=== PATIENT | male | born 1955 | race African-American/Black ===

== ENCOUNTER 2018-11-23 08:53 | Emergency (ER) | payer BC ==
[2018-11-23 09:18] VITALS: BP 141/91; PULSE 86; TEMP 98.4; BMI 25.8
[2018-11-23] MEDS ORDERED: ACETAMINOPHEN 325 MG TABLET (FP) PO ONE (10:27)
--- NOTE | 2018-11-23 10:27 | PDOC ---
History of Present Illness - General History Source: Patient - History of Present Illness Timing/Duration: reports: other <Saint AnthonySherri - Last Filed: 11/23/18 12:24> <Twyla Alonzo - Last Filed: 11/23/18 14:33> - General Chief Complaint: Headache Stated Complaint: HEADACHE Time Seen by Provider: 11/23/18 10:05 Past History - Past Medical History COPD: No - Suicide/Smoking/Psychosocial Hx Smoking History: Current every day smoker Number of Cigarettes Smoked Daily: 15 Information on smoking cessation initiated: Yes Hx Alcohol Use: No Drug/Substance Use Hx: No <Sherri Bunch - Last Filed: 11/23/18 12:24> <Twyla Alonzo - Last Filed: 11/23/18 14:33> - Past Medical History Allergies/Adverse Reactions: Allergies Allergy/AdvReac Type Severity Reaction Status Date / Time No Known Allergies Allergy Verified 11/23/18 09:14 Home Medications: Ambulatory Orders Amlodipine Besylate/Benazepril [Lotrel 10-20 mg Capsule] 1 cap PO DAILY Hydrochlorothiazide 12.5 mg PO DAILY 11/23/18 Review of Systems - Review of Systems Neurological: Yes: Headache. No: Weakness, Dizziness <Sherri Bunch - Last Filed: 11/23/18 12:24> *Physical Exam - Vital Signs Last Vital Signs Temp Pulse Resp BP Pulse Ox 98.4 F 86 18 141/91 98 11/23/18 09:05 11/23/18 09:05 11/23/18 09:05 11/23/18 09:05 11/23/18 10:15 - Physical Exam General Appearance: Yes: Appropriately Dressed. No: Apparent Distress HEENT: positive: EOMI, Normal ENT Inspection, Normal Voice, TMs Normal, Pharynx Normal, Other (no ttp over sinuses, VA 20/25 OD, 20/40 OD, 20/25 OU). negative : Scleral Icterus (R), Scleral Icterus (L) Neck: positive: Supple Respiratory/Chest: negative: Respiratory Distress Neurologic: positive: inventory control manager II-XII NML intact, Fully Oriented, Alert, Normal Mood/ Affect, Motor Strength 5/5 <Sherri Bunch - Last Filed: 11/23/18 12:24> - Vital Signs Last Vital Signs Temp Pulse Resp BP Pulse Ox 98.4 F 86 18 141/91 98 11/23/18 09:05 11/23/18 09:05 11/23/18 09:05 11/23/18 09:05 11/23/18 10:15 <Twyla Alonzo - Last Filed: 11/23/18 14:33> Moderate Sedation - Procedure Monitoring Vital Signs: Procedure Monitoring Vital Signs Temperature 98.4 F 11/23/18 09:05 Pulse Rate 86 11/23/18 09:05 Respiratory Rate 18 11/23/18 09:05 Blood Pressure 141/91 11/23/18 09:05 O2 Sat by Pulse Oximetry (%) 98 11/23/18 10:15 <Sherri Bunch - Last Filed: 11/23/18 12:24> - Procedure Monitoring Vital Signs: Procedure Monitoring Vital Signs Temperature 98.4 F 11/23/18 09:05 Pulse Rate 86 11/23/18 09:05 Respiratory Rate 18 11/23/18 09:05 Blood Pressure 141/91 11/23/18 09:05 O2 Sat by Pulse Oximetry (%) 98 11/23/18 10:15 <Twyla Alonzo - Last Filed: 11/23/18 14:33> ED Treatment Course - Medications Given in the ED: ED Medications Discontinued Medications Generic Name Dose Route Start Last Admin Trade Name Orvilleq PRN Reason Stop Dose Admin Acetaminophen 650 mg 11/23/18 10:27 11/23/18 10:36 Tylenol - PO 11/23/18 10:28 650 mg ONCE ONE Administration Prednisone 60 mg 11/23/18 12:08 11/23/18 12:13 Deltasone - PO 11/23/18 12:09 60 mg ONCE ONE Administration <Twyla Alonzo - Last Filed: 11/23/18 14:33> Medical Decision Making - Medical Decision Making 11/23/18 10:22 63 yo M, h/o HTN, here w/ headache. Pt reports headache to R scientologist that radiates to eyes and "up my nose" x 3 days, constant, unable to describe, 8/10, better w/ motrin and worse when lying on his R side. Patient states over the past several months, has noticed worsening vision has become blurry on both sides despite wearing his glasses and suspects headache might be secondary to him straining to see. States he is planning on make an appointment with his supervisor shop after ED visit. Denies dizziness, nausea or vomiting. No prior LIU. No recent trauma. No URI sxs, f/c. Not on blood thinners. See exam New onset LIU Stable w/ unremarkable exam -CTH -ESR -anticipate dc w/ optho 2/2 recent visual change/straining to see despite wearing glasses 11/23/18 11:33 CT read as signs consistent with chronic sinusitis affecting R sphenoid/ethmoid sinuses. ESR 51. Pt given a dose of 60 mg prednisone here. I contacted pt's eye clinic, [facility], at [phone], and was told that pt can walk into clinic today 11/23/18 12:27 <Sherri Bunch - Last Filed: 11/23/18 12:24> *DC/Admit/Observation/Transfer <Sherri Bunch - Last Filed: 11/23/18 12:24> - Attestations Physician Attestion: I reviewed the case with the mid-level practitioner and agree with the mid- level practitioner's assessment, diagnosis and disposition. <Twyla Alonzo - Last Filed: 11/23/18 14:33> Diagnosis at time of Disposition: Headache Qualifiers: Headache type: unspecified Headache chronicity pattern: acute headache Intractability: not intractable Qualified Code(s): R51 - Headache - Discharge Dispostion Disposition: HOME Condition at time of disposition: Improved - Referrals Referrals: Bassam Padilla MD [Primary Care Provider] - - Patient Instructions Printed Discharge Instructions: DI for Headache Additional Instructions: You were seen in our ED for right temporal headache for 3 days and also complaining of possible worsening vision bilaterally recently. With your glasses on, your visual acuity to right eye was 20/25, to left eye was 20/40 and both eyes 20/25. Your CAT scan of your head showed no acute pathology, but does show some chronic sinus condition to your right sphenoid/ethmoid sinuses. Your ESR was 51, which is elevated. Given concern for possible temporal arteritis, you were given a dose of prednisone here, 60 mg po You need to follow-up with the supervisor shop [facility] for further evaluation and possible biopsy of your temporal artery. We called your eye clinic, [facility], and was told that you can walk in today - Post Discharge Activity
[2018-11-23] MEDS ORDERED: ACETAMINOPHEN 325 MG TABLET (FP) ONE (10:32)
[2018-11-23] MEDS ORDERED: predniSONE 20 MG TABLET (UD) PO ONE (12:08)
[2018-11-23] MEDS ORDERED: predniSONE 20 MG TABLET (UD) ONE (12:12)
== END 2018-11-23 12:31 | disposition home or self-care (01) ==
LOC: JER 08:53
DX: R51 Headache (principal); I10 Essential (primary) hypertension; F17.210 Nicotine dependence, cigarettes, uncomplicated
CPT/HCPCS: 36415; 70450-TC; 85651; 99283-25

== ENCOUNTER 2019-07-28 09:12 | Inpatient (IN) | payer BC ==
--- NOTE | 2019-07-27 23:07 | HP ---
Admitting History and Physical - Admission Chief Complaint: right hip osteoarthritis x years History of Present Illness: 64 year old male presents in regard to their right hip. Long-standing history of right hip osteoarthritis. Patient complains of pain, limited range of motion , difficulty ambulating, and difficulty with activities of daily living. Patient has failed conservative treatment options including PO medications, activity modification, injections, and exercise programs. At this point, patient like to proceed with surgical intervention, right total hip arthroplasty MAKOplasty. History Source: Patient - Past Medical History Cardiovascular: Yes: HTN Musculoskeletal: Yes: Osteoarthritis - Past Surgical History Additional Past Surgical History: See written history & physical. - Smoking History Smoking history: Current every day smoker Have you smoked in the past 12 months: Yes Aproximately how many cigarettes per day: 15 - Alcohol/Substance Use Hx Alcohol Use: Yes (none since 1999) Home Medications - Allergies Allergies/Adverse Reactions: Allergies Allergy/AdvReac Type Severity Reaction Status Date / Time No Known Allergies Allergy Verified 11/23/18 09:14 - Home Medications Home Medications: Ambulatory Orders Amlodipine Besylate/Benazepril [Lotrel 10-20 mg Capsule] 1 cap PO DAILY Hydrochlorothiazide 12.5 mg PO DAILY 11/23/18 Review of Systems - Review of Systems Musculoskeletal: reports: Decreased ROM (right hip), Joint Pain (right hip) Physical Examination Constitutional: Yes: Well Nourished, No Distress Eyes: Yes: Conjunctiva Clear HENT: Yes: Atraumatic Neck: Yes: Supple Cardiovascular: Yes: Regular Rate and Rhythm Respiratory: Yes: Regular Gastrointestinal: Yes: Soft ...Rectal Exam: Yes: Deferred Musculoskeletal: Yes: Joint Stiffness (right hip) Assessment/Plan 64 year old male presents in regard to their right hip. Long-standing history of right hip osteoarthritis. Patient complains of pain, limited range of motion , difficulty ambulating, and difficulty with activities of daily living. Patient has failed conservative treatment options including PO medications, activity modification, injections, and exercise programs. At this point, patient like to proceed with surgical intervention, right total hip arthroplasty MAKOplasty. Pros, cons, risks, benefits, and alternatives of a right total hip arthroplasty MAKOplasty were discussed with the patient at length. Patient confirms their understanding and consents to proceed with a right total hip arthroplasty MAKOplasty.
[~2019-07-28 09:12] MED LIST: BUPIVICAINE 0.25%/MORPH PF/KETOROLAC - 51ML DISP.SYRINGE IA ONE; CEFAZOLIN 2 GM in DEXTROSE 5%-WATER - 50 ML IVPB ONE; CELECOXIB 200 MG CAPSULE PO ONE; PANTOPRAZOLE 40 MG TABLET (FP) PO ONE; TRANEXAMIC ACID 1000 MG/10 ML VIAL IVPUSH ONE; oxyCODONE HCL 10 MG SUSTAINED ACTING TABLET PO ONE
[2019-07-28 09:45] VITALS: BMI 25.0
[2019-07-28] MEDS ORDERED: oxyCODONE HCL 10 MG SUSTAINED ACTING TABLET ONE (10:13)
[2019-07-28] MEDS ORDERED: CELECOXIB 200 MG CAPSULE ONE (10:13)
[2019-07-28] MEDS ORDERED: PANTOPRAZOLE 40 MG TABLET (FP) ONE (10:15)
[2019-07-28] MEDS ORDERED: ceFAZolin SODIUM 1 GM VIAL ONE ×2 (11:24→11:37)
[2019-07-28] MEDS ORDERED: VANCOMYCIN 1,000 MG VIAL (RESTRICTED TO ID ONLY) ONE (11:24)
[2019-07-28] MEDS ORDERED: TRANEXAMIC ACID 1000 MG/10 ML VIAL ONE ×3 (11:24→14:50)
[2019-07-28] MEDS ORDERED: ROPIVACAINE HCL 0.5% 30ML VIAL ONE (11:37)
[2019-07-28] MEDS ORDERED: EPINEPHrine/PF 1 MG/1 ML (1:1,000) AMPULE ONE (11:37)
[2019-07-28] MEDS ORDERED: MIDAZOLAM HCL 2 MG/2 ML SINGLE DOSE VIAL ONE ×2 (11:37→12:18)
[2019-07-28] MEDS ORDERED: PROPOFOL 20 ML ONE ×2 (11:38)
[2019-07-28] MEDS ORDERED: BUPIVICAINE 0.25%/MORPH PF/KETOROLAC - 51ML DISP.SYRINGE IA ONE (12:43)
--- NOTE | 2019-07-28 15:21 | OP ---
Operative Note - Note: Operative Date: 07/28/19 Pre-Operative Diagnosis: right hip OA Operation: right JAK DOMINICK Surgeon: Satnam Holland Orchard Worker: Viviana Camacho Anesthesia: Spinal Estimated Blood Loss (mls): 200
[2019-07-28] MEDS ORDERED: ACETAMINOPHEN 1000 MG/100 ML VIAL (NON FORMULARY) IVPB ONE (15:22)
[2019-07-28] MEDS ORDERED: MAG HYDROX/AL HYDROX/SIMETH 30 ML UNIT-DOSE CUP PO PRN (15:24)
[2019-07-28] MEDS ORDERED: ONDANSETRON 4 MG/2 ML VIAL IVPUSH PRN (15:24)
[2019-07-28] MEDS ORDERED: MAGNESIUM HYDROX 2400MG/30ML ORAL SUSPENSION 30 ML CUP PO PRN (15:24)
[2019-07-28] MEDS ORDERED: KETOROLAC TROMETHAMINE 30 MG/1 ML VIAL ONE (15:26)
[2019-07-28] MEDS ORDERED: LACTATED RINGERS SOLUTION 1,000 ML IV SCH (15:30)
[2019-07-28] MEDS ORDERED: KETOROLAC TROMETHAMINE 30 MG/1 ML VIAL IVPUSH SCH (15:30)
[2019-07-28] MEDS ORDERED: oxyCODONE HCL 5 MG TABLET PO PRN (15:47)
[2019-07-28] MEDS: traMADol HCL 50 MG TABLET PO SCH (16:13)
--- NOTE | 2019-07-28 16:52 | SPEC ---
DATE OF OPERATION: 07/28/2019 PREOPERATIVE DIAGNOSIS: Right hip osteoarthritis. POSTOPERATIVE DIAGNOSIS: Right hip osteoarthritis. PROCEDURE: Right total hip replacement with MAKOplasty robotic navigation. ATTENDING: Vamsi Wiley MD COAL TRAMMER: MEENA Palmer ANESTHESIA: Spinal plus sedation. ESTIMATED BLOOD LOSS: 200 mL. COMPLICATIONS: None. DISPOSITION: The patient was transferred to the PACU in stable condition. IMPLANTS USED: Kristin Accolade II size 7 femoral component, Kristin Trident II 58-mm acetabular component with 25- and 30-mm acetabular screws, MDM bipolar head ball and liner with inner +4-mm offset ceramic head ball. INDICATIONS: This is a 64-year-old male who presented to the office complaining of severe right hip pain. He was seen and examined by Dr. Wiley and diagnosed with severe right hip osteoarthritis. The patient was initially treated conservatively but continued to have severe pain and ambulatory dysfunction. He was, therefore, indicated for a right total hip replacement. The risks, benefits, and alternatives to the procedure were explained to the patient in great detail, and he elected to proceed with the surgery. DESCRIPTION OF PROCEDURE: On the day of surgery, the patient was taken to the operating room and placed on the OR table. Spinal anesthesia was administered by the anesthesiologist. The patient was then positioned in the lateral decubitus position on the table and all bony prominences were padded. An axillary roll was placed. The operative hip was then prepped and draped in the usual sterile fashion and intravenous antibiotics were given for infection prophylaxis. A surgical time-out was then performed with the team, and the patients identity, procedure, side, availability of implants, and the administration of antibiotics were confirmed. An approximately 15-cm longitudinal incision was made through the skin centered on the greater trochanter of the hip. This dissection was carried down through the subcutaneous tissues to the deep fascia. This fascia was then incised and a Cobra was placed around the inferior femoral neck. Electrocautery was used to reflect the anterior 40% of the gluteus medius and minimus starting at the musculotendinous junction and leaving a cuff for closure. This was reflected to reveal the capsule of the hip joint. An anterior capsulectomy was performed and the femoral head and neck were visualized. Grade 4 changes were noted diffusely throughout the joint. At this point, three small stab incisions were made superior to the main incision along the iliac crest. Three self-drilling Steinmann pins were then placed and the eEvent pelvic array was attached. Reference points on the limb were then entered into the robotic device and the limb length deficiency, offset, and femoral neck resection level were then calculated by the software. The hip was then dislocated with traction and external rotation. An oscillating saw was used to make the femoral neck cut at the level previously templated, and the femoral head was removed. Attention was then turned to the acetabulum. Retractors were then placed around the acetabulum and the labrum was removed. An acetabular checkpoint pin and the eEvent software were used to register the contours of the acetabulum. The acetabulum was then reamed in a single stage to the preoperatively templated size using the eEvent robotic arm. The appropriately sized cup was then impacted and had solid fixation as well as the preset inclination and version of 40 and 20 degrees, respectively. A polyethylene liner was then placed in the cup. Attention was then turned back to the femur, which was externally rotated for improved visualization. A femoral neck elevator was used to present the femoral neck cut, a box osteotome was used to enter the femoral canal, and a canal finder was used to go down the femoral shaft. The Francisco broaches were used sequentially until the optimal scratch fit was achieved. This correlated with the preoperatively templated size. From here, several different offset head and neck configurations were tested until excellent stability and length were obtained. These measurements were quantified using the eEvent software. All trial components were then removed, the femur was copiously irrigated, and the final components were placed. Leg length and stability were checked again and found to be excellent. Irrigation was performed again. After final implants were placed, a 3-minute dilute Betadine lavage was performed. Following this, the wound was thoroughly irrigated with normal saline via pulsatile lavage, and wound closure was begun. Wound closure was started by repairing the abductor muscles with a no. 2 FiberWire stitch in a Krackow configuration passed through bone tunnels in the greater trochanter and tied over a bony bridge. This repair was then reinforced with a 0 V-Loc 180 barbed suture. Next, no. 1 Polysorb and 0 V-Loc 180 were used to close the fascia. The deep subcutaneous tissue was closed with no. 1 Polysorb sutures, and 2-0 Polysorb was used for the superficial subcutaneous tissue. The skin was closed using both 3-0 V-Loc 90 suture in a running subcuticular fashion and SwiftSet skin adhesive. The Francisco array and pins were removed from the iliac crest and the stab incision sites were irrigated and closed with 4-0 Polysorb sutures and SwiftSet skin adhesive. Once this was completed, a sterile dressing was applied. The patient was then awakened and taken to the PACU in stable condition. VAMSI WILEY M.D. TESSY/[id number]
[2019-07-28] MEDS: CEFAZOLIN 2 GM/D5W 2 GM/50 ML ML IVPB SCH (17:29)
[2019-07-28] MEDS: oxyCODONE HCL 5 MG TABLET PO PRN (17:32)
[2019-07-28] MEDS: SENNOSIDES/DOCUSATE COMBO (SENNA PLUS) TABLET (UD) PO SCH (21:46)
[2019-07-28] MEDS: ASCORBIC ACID 500 MG TABLET (FP) PO SCH (21:46)
[2019-07-28] MEDS: GABAPENTIN 300 MG CAPSULE (FP) PO SCH (21:47)
[2019-07-28] MEDS: CELECOXIB 200 MG CAPSULE PO SCH (21:48)
[2019-07-28] MEDS: KETOROLAC TROMETHAMINE 30 MG/1 ML VIAL IVPUSH SCH (21:48)
[2019-07-28] MEDS: oxyCODONE HCL 10 MG SUSTAINED ACTING TABLET PO SCH (21:49)
[2019-07-29] MEDS ORDERED: DEXAMETHASONE SOD PHOSPHATE 10 MG/1 ML VIAL IVPB ONE
[2019-07-29] MEDS: ACETAMINOPHEN 325 MG TABLET (FP) PO SCH ×5 (00:02→23:56)
[2019-07-29] MEDS: traMADol HCL 50 MG TABLET PO SCH ×5 (00:03→23:56)
[2019-07-29] MEDS: CEFAZOLIN 2 GM/D5W 2 GM/50 ML ML IVPB SCH (01:14)
[2019-07-29] MEDS: KETOROLAC TROMETHAMINE 30 MG/1 ML VIAL IVPUSH SCH ×3 (02:56→14:51)
[2019-07-29 07:21] LABS: HEMATOCRIT 39.3 % (35.4-49); HEMOGLOBIN 13.4 GM/dl (11.7-16.9); MCH 31.5 pg (25.7-33.7); MCHC 33.9 g/dl (32.0-35.9); MEAN CELL VOLUME 92.7 fl (80-96); MEAN PLT VOLUME 7.9 fl (7.5-11.1); PLATELET COUNT 356 K/MM3 (134-434); RBC 4.24 M/mm3 (4.00-5.60); RDW 12.9 % (11.9-15.9)
[2019-07-29 07:30] LABS: CALCIUM 8.6 mg/dl (8.5-10); CREATININE 1.3 mg/dl (0.55-1.3); POTASSIUM 4.1 mmol/L (3.5-5.1)
[2019-07-29] MEDS: LACTATED RINGERS SOLUTION 1,000 ML IV SCH ×2 (08:13→17:33)
[2019-07-29] MEDS: ASPIRIN 325 MG TABLET PO SCH (08:30)
[2019-07-29] MEDS ORDERED: PATIENT'S OWN MEDICATION (NON-FORMULARY) (Amlodipine Besylate/Benazepril [Lotrel 10-20 Mg PO SCH (10:00)
[2019-07-29] MEDS: CELECOXIB 200 MG CAPSULE PO SCH ×2 (10:59→21:36)
[2019-07-29] MEDS: amLODIPine BESYLATE 10 MG TABLET (FP) PO SCH (10:59)
[2019-07-29] MEDS: HYDROCHLOROTHIAZIDE 12.5 MG CAPSULE (FP) PO SCH (10:59)
[2019-07-29] MEDS: SENNOSIDES/DOCUSATE COMBO (SENNA PLUS) TABLET (UD) PO SCH ×2 (10:59→21:37)
[2019-07-29] MEDS: MULTIVITAMINS (DAILY MVI) TABLET (FP) PO SCH (10:59)
[2019-07-29] MEDS: LISINOPRIL 20 MG TABLET (FP) PO SCH (10:59)
[2019-07-29] MEDS: GABAPENTIN 300 MG CAPSULE (FP) PO SCH ×2 (10:59→21:36)
[2019-07-29] MEDS: ASCORBIC ACID 500 MG TABLET (FP) PO SCH ×2 (10:59→21:37)
[2019-07-29] MEDS: PANTOPRAZOLE 40 MG TABLET (FP) PO SCH (10:59)
[2019-07-29] MEDS: oxyCODONE HCL 10 MG SUSTAINED ACTING TABLET PO SCH ×2 (11:00→21:36)
--- NOTE | 2019-07-29 15:34 | PN ---
Progress Note (short form) - Note Progress Note: S: Pt. sitting in a chair. No c/o O: VAS 10/14 A/P: POD #1 s/p right total hip replacement 1. Continue pain meds as ordered 2. No anesthetic complications
--- NOTE | 2019-07-29 19:20 | PN ---
Progress Note (short form) - Note Progress Note: Pt seen and examined. Doing well. AVSS Selected Entries 07/29/19 18:00 Temperature 98.6 F Pulse Rate 74 Respiratory 17 Rate Blood Pressure 130/77 O2 Sat by Pulse 94 L Oximetry (%) Oxygen Delivery Room Air Method Laboratory Tests 07/29/19 07/29/19 07:07 07:07 WBC 11.0 H Hgb 13.4 Hct 39.3 Plt Count 356 Sodium 138 Potassium 4.1 Chloride 106 Carbon Dioxide 23 Anion Gap 9 BUN 24.0 H Creatinine 1.3 Est GFR (CKD-EPI)AfAm 67.30 Est GFR (CKD-EPI)NonAf 58.07 Random Glucose 135 H Calcium 8.6 Gen: NAD RLE: c/d/i, NVID A/P POD#1 s/p R JAK TAN PT/OOB - WBAT RLE D/C home in AM
--- NOTE | 2019-07-29 19:36 | DS ---
Physical Examination Vital Signs: Vital Signs Temperature 98.6 F 07/29/19 18:00 Pulse Rate 74 07/29/19 18:00 Respiratory Rate 17 07/29/19 18:00 Blood Pressure 130/77 07/29/19 18:00 O2 Sat by Pulse Oximetry (%) 94 L 07/29/19 18:00 Labs: CBC, BMP 07/29/19 07:07 07/29/19 07:07 Discharge Summary Problems reviewed: Yes Reason For Visit: RIGHT HIP OSTEOARTHRITIS Current Active Problems Osteoarthritis of right hip (Acute) Procedures: Principal: right JAK DOMINICK Hospital Course: Admitted for elective surgery. Procedure performed without complications. Pt received postoperative antibiotic prophylaxis and DVT ppx. Ambulated with physical therapy. Stable for discharge home with outpatient followup. Condition: Stable - Instructions Diet, Activity, Other Instructions: Dr Holland - Hip Replacement Instructions Keep the Aquacel dressing on until removed by Dr. Holland in 10-14 days - it is antibacterial and waterproof and you can shower with it on. Call the office for a follow-up appointment with Dr. Holland in 14 days. [phone] Take one Aspirin 325mg daily for 6 weeks to prevent blood clots in your legs. Take one Pantoprazole 40mg daily for 6 weeks to protect against heartburn and ulcers. Take Cephalexin (antibiotic) 3x/day for 10 days to help prevent skin infection. Take Celebrex 200mg twice daily for 30 days to reduce swelling and inflammation. Take a multivitamin, stool softener and extra Vitamin C supplement daily. For pain: *Mild pain (1-3/10): Take 1 Tramadol tablet every 4 hours as needed. Moderate pain (4-6/10): Take 1 Tramadol tablet and 1 Percocet tablet every 4 hours as needed. Severe pain (7-10/10): Take 1 Tramadol tablet and 2 Percocet tablets every 4 hours as needed. Activity: You can put as much weight on the operative leg as you want. For the first 6 weeks, all you need to do is walk around the house, go up/down stairs, and sit down/get up. After 6 weeks when everything is healed (and bone has grown into the implant) you will be sent for more intensive outpatient physical therapy. Always use a walker or cane for balance and to prevent falls. Expect to see swelling / bruising from the operative site all the way down to your toes. Wear the Compression stocking on the operative side during the day to minimize how much swelling there is in your foot/ankle. Don't wear the stocking at night. You don't have to wear the stocking on the other side. Disposition: VNS/HOME HEALTH CARE - Home Medications Comprehensive Discharge Medication List: Ambulatory Orders Amlodipine Besylate/Benazepril [Lotrel 10-20 mg Capsule] 1 cap PO DAILY Hydrochlorothiazide 12.5 mg PO DAILY 11/23/18 Ascorbic Acid [Vitamin C -] 500 mg PO BID tablet 07/29/19 Aspirin [ASA -] 325 mg PO DAILY@0800 tablet 07/29/19 Celecoxib [CeleBREX -] 200 mg PO BID #60 capsule 07/29/19 Cephalexin Monohydrate [Keflex -] 500 mg PO TID #30 capsule 07/29/19 Multivitamins [Multivit ([facility] Formulary)] 1 tab PO DAILY tab 07/29/19 Oxycodone HCl/Acetaminophen [Percocet 5-325 mg Tablet] 1 - 2 tab PO Q4H PRN #60 tablet MDD 10 07/29/19 Pantoprazole Sodium [Protonix -] 40 mg PO DAILY #40 tablet.ec 07/29/19 Sennosides/Docusate Sodium [Pericolace -] 2 tablet PO BID tablet 07/29/19 traMADol HCL [Ultram -] 50 mg PO Q4H PRN #42 tablet MDD 6 07/29/19
[2019-07-29] MEDS: oxyCODONE HCL 5 MG TABLET PO PRN (20:21)
[2019-07-30] MEDS: ACETAMINOPHEN 325 MG TABLET (FP) PO SCH (06:16)
[2019-07-30] MEDS: traMADol HCL 50 MG TABLET PO SCH (06:17)
[2019-07-30] MEDS: ASPIRIN 325 MG TABLET PO SCH (08:19)
[2019-07-30 08:45] LABS: HEMATOCRIT 39.3 % (35.4-49); HEMOGLOBIN 13.1 GM/dl (11.7-16.9); MCH 31.3 pg (25.7-33.7); MCHC 33.4 g/dl (32.0-35.9); MEAN CELL VOLUME 93.6 fl (80-96); PLATELET COUNT 345 K/MM3 (134-434); RDW 13.5 % (11.9-15.9); WHITE BLOOD COUNT 8.5 K/mm3 (4.0-10.8)
[2019-07-30] MEDS: CELECOXIB 200 MG CAPSULE PO SCH (09:10)
[2019-07-30] MEDS: SENNOSIDES/DOCUSATE COMBO (SENNA PLUS) TABLET (UD) PO SCH (09:10)
[2019-07-30] MEDS: HYDROCHLOROTHIAZIDE 12.5 MG CAPSULE (FP) PO SCH (09:10)
[2019-07-30] MEDS: GABAPENTIN 300 MG CAPSULE (FP) PO SCH (09:10)
[2019-07-30] MEDS: LISINOPRIL 20 MG TABLET (FP) PO SCH (09:10)
[2019-07-30] MEDS: PANTOPRAZOLE 40 MG TABLET (FP) PO SCH (09:10)
[2019-07-30] MEDS: ASCORBIC ACID 500 MG TABLET (FP) PO SCH (09:10)
[2019-07-30] MEDS: MULTIVITAMINS (DAILY MVI) TABLET (FP) PO SCH (09:10)
[2019-07-30] MEDS: amLODIPine BESYLATE 10 MG TABLET (FP) PO SCH (09:11)
[2019-07-30] MEDS: oxyCODONE HCL 10 MG SUSTAINED ACTING TABLET PO SCH (09:11)
[2019-07-30 10:01] VITALS: BP 103/64; PULSE 73; TEMP 97.7
--- NOTE | 2019-08-01 17:35 | PATH ---
Surgical Pathology Report Patient Name: INEZ BARBOSA Med. Rec. #: [id number] /Age/Gender: 1955 (Age: 64) / M Account: [id number] Location: [facility] MED-SURG Taken: 07/28/2019 Received: 07/28/2019 Reported: 08/01/2019 Physicians: Satnam Holland M.D. Specimen(s) Received RIGHT HIP BONE Clinical History Right hip osteoarthritis Final Diagnosis BONE, HIP, RIGHT, TOTAL HIP REPLACEMENT MAKOPASTY: BONE WITH DEGENERATIVE JOINT DISEASE. Electronically Signed Harleen Yancey M.D. Gross Description Received in formalin, labeled "right hip bone," is a 5.0 x 5.0 x 4.2 cm. femoral head with a 1.5 cm in length portion of femoral neck attached. The margin of resection is smooth. There is a 1.5 cm greatest dimension area of eburnation present. The remaining articular surface is jeffrey-yellow and diffusely granular and nodular. The underlying trabecular bone is yellow and hard. A strategic partnership representative section is submitted in one cassette, following decalcification. /07/29/2019 [facility]07/29/2019
== END 2019-07-30 09:50 | disposition home health service (06) | DRG 470 ==
LOC: FM/S 09:12
PROVIDERS: ADMIT Student in an Organized Health Care Education/Training Program; ATTEND Student in an Organized Health Care Education/Training Program
PROC: 8E0W0CZ Robotic Assisted Procedure of Trunk Region, Open Approach (ICD-10-PCS; 2019-07-28)
PROC: 0SR90JZ Replacement of Right Hip Joint with Synthetic Substitute, Open Approach (ICD-10-PCS; principal; 2019-07-28 13:02)
DX: M16.11 Unilateral primary osteoarthritis, right hip (principal); I10 Essential (primary) hypertension
CPT/HCPCS: 36415; 73502-TC-RT-FY; 80048; 80074; 85027; 87389; 88305-TC; 88311-TC; 94760; 97116-GP; 97163-GP; J0131; J1100

== ENCOUNTER 2021-08-20 06:00 | Day surgery (SDC) | payer BC ==
[2021-08-14 11:41] VITALS: BMI 25.1
[2021-08-20] MEDS ORDERED: TRANEXAMIC ACID 1000 MG/10 ML VIAL IVPUSH ONE (06:25)
[2021-08-20] MEDS ORDERED: ONDANSETRON 4 MG/2 ML VIAL IVPUSH PRN (06:34)
[2021-08-20] MEDS ORDERED: MAGNESIUM HYDROX 2400MG/30ML ORAL SUSPENSION 30 ML CUP PO PRN (06:34)
[2021-08-20] MEDS ORDERED: MAG HYDROX/AL HYDROX/SIMETH 30 ML UNIT-DOSE CUP PO PRN (06:34)
[2021-08-20] MEDS ORDERED: ceFAZolin SODIUM 1 GM VIAL ONE ×4 (06:42→23:38)
[2021-08-20] MEDS ORDERED: VANCOMYCIN 1,000 MG VIAL (RESTRICTED TO ID ONLY) ONE (06:42)
[2021-08-20] MEDS ORDERED: LACTATED RINGERS SOLUTION 1,000 ML IV SCH ×2 (06:45→09:45)
[2021-08-20] MEDS ORDERED: BUPIVACAINE HCL/PF 0.5% (5 MG/ML) 30 ML VIAL IJ ONE (06:53)
[2021-08-20] MEDS ORDERED: MIDAZOLAM HCL 2 MG/2 ML SINGLE DOSE VIAL ONE ×2 (06:53→08:01)
[2021-08-20] MEDS: CELECOXIB 200 MG CAPSULE PO ONE ×2 (07:00→11:46)
[2021-08-20] MEDS ORDERED: ROCURONIUM BROMIDE 50 MG/5 ML SYRINGE ONE (07:17)
[2021-08-20] MEDS ORDERED: PROPOFOL 20 ML ONE ×4 (07:17)
[2021-08-20] MEDS ORDERED: CEFAZOLIN 2 GM in DEXTROSE 5%-WATER - 50 ML IVPB ONE (07:30)
[2021-08-20] MEDS ORDERED: BUPIVACAINE HCL 50 ML ONE (07:42)
[2021-08-20] MEDS ORDERED: ONDANSETRON 4 MG/2 ML VIAL ONE (08:44)
[2021-08-20] MEDS ORDERED: KETOROLAC TROMETHAMINE 30 MG/1 ML VIAL ONE (08:44)
[2021-08-20] MEDS ORDERED: DEXAMETHASONE SOD PHOSPHATE 4 MG/1 ML VIAL ONE (08:44)
[2021-08-20] MEDS ORDERED: TRANEXAMIC ACID 1000 MG/10 ML VIAL ONE (08:44)
[2021-08-20] MEDS ORDERED: ACETAMINOPHEN INJECTION 100 ML IVPB ONE (09:20)
[2021-08-20] MEDS ORDERED: oxyCODONE HCL 5 MG TABLET PO PRN (09:41)
[2021-08-20] MEDS: ACETAMINOPHEN 1000 MG/100 ML VIAL IVPB ONE ×2 (09:46→11:46)
[2021-08-20] MEDS ORDERED: PATIENT'S OWN MEDICATION (NON-FORMULARY) (Amlodipine/Atorvastatin [Amlodipine-Atorvast 10- PO SCH (10:00)
[2021-08-20] MEDS: oxyCODONE HCL 10 MG SUSTAINED ACTING TABLET PO SCH ×2 (11:46→22:06)
[2021-08-20] MEDS: PANTOPRAZOLE 40 MG TABLET PO SCH (11:47)
[2021-08-20] MEDS: SENNOSIDES/DOCUSATE COMBO (SENNA PLUS) TABLET (UD) PO SCH ×2 (11:47→22:06)
[2021-08-20] MEDS: TIOTROPIUM BROMIDE 2.5 MCG (SPIRIVA) RESPIMAT INHALER IH SCH (11:47)
[2021-08-20] MEDS: MULTIVITAMINS (DAILY MVI) TABLET (FP) PO SCH (11:47)
[2021-08-20] MEDS ORDERED: DEXTROSE 5%-WATER - 50 ML IVPB ONE ×2 (16:42→23:38)
[2021-08-20] MEDS: CEFAZOLIN 2 GM in DEXTROSE 5%-WATER - 50 ML IVPB SCH ×2 (16:51→23:44)
[2021-08-20] MEDS: oxyCODONE HCL 5 MG TABLET PO PRN ×2 (16:51→19:54)
[2021-08-21] MEDS ORDERED: DEXTROSE 5%-WATER - 50 ML IVPB ONE (02:53)
[2021-08-21] MEDS ORDERED: ceFAZolin SODIUM 1 GM VIAL ONE (02:53)
[2021-08-21] MEDS: oxyCODONE HCL 5 MG TABLET PO PRN (05:47)
[2021-08-21 06:31] VITALS: BP 146/78
[2021-08-21] MEDS ORDERED: ASPIRIN 325 MG TABLET PO SCH (08:00)
[2021-08-21 08:15] LABS: HEMATOCRIT 40.2 % (35.4-49); HEMOGLOBIN 13.3 GM/dl (11.7-16.9); MCH 30.8 pg (25.7-33.7); MCHC 33.1 g/dl (32.0-35.9); MEAN CELL VOLUME 92.9 fl (80-96); MEAN PLT VOLUME 7.9 fl (7.5-11.1); PLATELET COUNT 317 10^3/uL (134-434); RBC 4.32 M/mm3 (4.00-5.60); RDW 13.2 % (11.9-15.9); WHITE BLOOD COUNT 9.8 K/mm3 (4.0-10.8)
[2021-08-21] MEDS: SENNOSIDES/DOCUSATE COMBO (SENNA PLUS) TABLET (UD) PO SCH (09:55)
[2021-08-21] MEDS: oxyCODONE HCL 10 MG SUSTAINED ACTING TABLET PO SCH (09:57)
[2021-08-21] MEDS: MULTIVITAMINS (DAILY MVI) TABLET (FP) PO SCH (09:57)
[2021-08-21] MEDS: PANTOPRAZOLE 40 MG TABLET PO SCH (09:57)
[2021-08-21] MEDS: TIOTROPIUM BROMIDE 2.5 MCG (SPIRIVA) RESPIMAT INHALER IH SCH (09:58)
[2021-08-21] MEDS ORDERED: ATORVASTATIN CA 20 MG TABLET (FP) PO SCH (10:00)
[2021-08-21] MEDS ORDERED: amLODIPine BESYLATE 10 MG TABLET (FP) PO SCH (10:00)
[2021-08-21] MEDS ORDERED: FLUTICASONE/UMECLIDIN/VILANTER(100-62.5-25 TRELEGY ELLIPTA) INAHLER IH SCH (10:00)
[2021-08-21 10:07] VITALS: PULSE 64; TEMP 99.1
== END 2021-08-21 14:24 | disposition home health service (06) ==
LOC: FASUSAT 06:00 → FM/S 10:40 → EDSTATUS 13:00 → FASUSAT 08-21 14:24
PROVIDERS: ATTEND Orthopaedic Surgery
PROC: 8E0YXBZ Computer Assisted Procedure of Lower Extremity (ICD-10-PCS; 2021-08-20)
PROC: 8E0W0CZ Robotic Assisted Procedure of Trunk Region, Open Approach (ICD-10-PCS; 2021-08-20)
PROC: 0SRB039 Replacement of Left Hip Joint with Ceramic Synthetic Substitute, Cemented, Open Approach (ICD-10-PCS; principal; 2021-08-20 08:07)
DX: M16.12 Unilateral primary osteoarthritis, left hip (principal); I10 Essential (primary) hypertension; F17.200 Nicotine dependence, unspecified, uncomplicated; J44.9 Chronic obstructive pulmonary disease, unspecified; E78.5 Hyperlipidemia, unspecified
CPT/HCPCS: 20985; 27130; C1776; S2900; 36415; 73502-TC-LT-FY; 85027; 94760; 97010-GP; 97116-GP; 97162-GP; J0131